=== PATIENT | female | born 1945 | race Caucasian/White ===

== ENCOUNTER 2017-10-13 05:06 | Inpatient (IN) | payer OTHER, MEDICAID ==
--- NOTE | 2017-10-13 05:17 | EDPHY ---
H & P Stated Complaint: Unresponsive - from EMS Time Seen by Provider: 10/13/17 05:12 HPI/ROS: Chief Complaint: Decreased level of responsiveness HPI: 72-year-old woman who is a resident of [facility]. EMS was called this morning because the patient was found with decreased responsiveness in her residence. She has a history of schizophrenia, type 2 diabetes on metformin, chronic kidney disease. Per EMS, staff at [facility] indicated that the patient has been having intermittent GI bleeding for the last 2 days. They also states that her blood sugars been running"high"for the last 2 days. The patient has not been taking her metformin. She was in her normal state of health and mental status yesterday. This morning EMS states that the patient was opening her her eyes and responding to noxious stimuli only. She has not been verbalizing. She was satting in the low 80s on room air. She has a signed [facility] most form indicating that she is full treatment. ROS: 10 point Review of Systems is negative except as noted in the HPI. PMH: Schizophrenia, type 2 diabetes, chronic kidney disease Social History: No smoking, no alcohol, no recreational drug use Family History: non-contributory Physical Exam: Vital signs: Heart rate 118, blood pressure 182/96, respiratory rate is 20, oxygen saturations 94% on 2 L, temperature 37.5 Gen: Somnolent, opens eyes to voice, nonverbal HEENT: Nose: no rhinorrhea Eyes: PERRLA, EOMI Mouth: Dry mucosa Neck: Supple, no JVD Chest: nontender, bilateral diminished lung sounds Heart: S1, S2 normal, no murmur Abd: Soft, non-tender, no guarding Back: no CVA tenderness, no midline tenderness Ext: no edema, non-tender Skin: no rash Neuro: CN II-XII intact, Sensation grossly intact, Strength 5/5 in bilateral upper and lower extremities - Personal History Current Tetanus/Diphtheria Vaccine: Unsure Current Tetanus Diphtheria and Acellular Pertussis (TDAP): Unsure - Medical/Surgical History Hx Asthma: No Hx Chronic Respiratory Disease: No Hx Diabetes: No Hx Cardiac Disease: No Hx Renal Disease: No Hx Cirrhosis: No Hx Alcoholism: No Hx HIV/AIDS: No Hx Splenectomy or Spleen Trauma: No Other PMH: According to alf records: Hernia, diabetes type II, edema, paranoid personality disorder, paraniod schizophrenia, HTN, GERD, - Social History Smoking Status: Unknown if ever smoked Constitutional: Initial Vital Signs Temperature (C) 37.5 C 10/13/17 05:09 Heart Rate 118 H 10/13/17 05:09 Respiratory Rate 20 10/13/17 05:09 Blood Pressure 182/96 H 10/13/17 05:09 O2 Sat (%) 94 10/13/17 05:09 O2 Delivery Mode Nasal Cannula O2 (L/minute) 4 Allergies/Adverse Reactions: No Known Allergies Allergy (Verified 02/15/15 08:30) Home Medications: Medication Instructions Recorded Aspirin EC [Aspirin EC 81 mg (*)] 81 mg PO DAILY 02/15/15 Bisacodyl [Dulcolax] 10 mg RC DAILY PRN 02/15/15 Calcium Carb W/Vit D [Calcium Carb 500 mg PO TIDMEAL 02/15/15 W/Vit D 500/200 (*)] Divalproex [Depakote Sprinkle 125 125 mg PO DAILY 02/15/15 MG (*)] Divalproex [Depakote Sprinkle 125 250 mg PO HS 02/15/15 MG (*)] Furosemide [Lasix 20 MG (*)] 20 mg PO DAILY 02/15/15 Labetalol HCl [Trandate 200 mg (*)] 200 mg PO BID 02/15/15 Lactulose [Cephulac 20 gm/30 ml 10 gm PO BID 02/15/15 oral soln (*)] OLANZapine [ZyPREXA 2.5 mg (*)] 10 mg PO BID 02/15/15 Potassium Cl [Klor-Con 20 meq (*)] 20 meq PO BID 02/15/15 Sennosides/Docusate Sodium 2 each PO BID 02/15/15 [Senna-Docusate Sodium Tablet] Trihexyphenidyl HCl 2 mg PO TIDMEAL 02/15/15 [Trihexyphenidyl 2MG (*)] metFORMIN HCL [Glucophage 500 mg 500 mg PO BIDMEAL 02/15/15 (*)] Medical Decision Making - Diagnostics EKG Interpretation: ECG time 6:43 a.m., sinus tachycardia with a rate of 104, left axis deviation. No acute ST or T-wave changes. Imaging Results: CT scan of the head is unchanged compared to [address] Cobb. No acute change. Chest x-ray shows no focal infiltrate per my interpretation. ED Course/Re-evaluation: 72-year-old unresponsive. She meets SIRS criteria. Will check lactate proceed down septic pathway. No obvious source of infection. Lactic acid noted. Fluids ordered. When results the risk of chemistry and imaging studies. Patient's potassium noted on i-STAT. Blood sugar noted. She is acidotic with an anion gap. Likely lactic acid. I do not thinks that she has an infection but I am awaiting chest x-ray results. I think she is in HHNK and is profoundly dehydrated. She will need an insulin drip regarding this. I have given her an insulin bolus because of her potassium. Will place her on an insulin drip as well. Awaiting CT scan results. I have discussed with Dr. Bradley, the hospitalist. She will admit to the ICU for further care. - Data Points Laboratory Results: Laboratory Results 10/13/17 05:20 10/13/17 05:20 10/13/17 10/13/17 10/13/17 05:34 05:22 05:20 WBC RBC Hgb POC Hgb 16.7 gm/dL H gm/dL (12.6-16.3) Hct POC Hct 49 % H % (38-47) MCV MCH MCHC RDW Plt Count MPV Neut % (Auto) Lymph % (Auto) [place] % (Auto) Eos % (Auto) Baso % (Auto) Nucleat RBC Rel Count Absolute Neuts (auto) Absolute Lymphs (auto) Absolute Monos (auto) Absolute Eos (auto) Absolute Basos (auto) Absolute Nucleated RBC Immature Gran % Immature Gran # PT INR APTT VBG Lactic Acid POC Sodium 144 mEq/L mEq/L (135-145) Sodium POC Potassium 6.0 mEq/L H mEq/L (3.3-5.0) Potassium POC Chloride 114 mEq/L H mEq/L (97-110) Chloride Carbon Dioxide Anion Gap POC BUN 60 mg/dL H mg/dL (7-23) BUN Creatinine POC Creatinine 1.5 mg/dL H mg/dL (0.6-1.0) Estimated GFR Glucose POC Glucose 698 mg/dL H* mg/dL (70-100) Calcium Phosphorus 5.5 mg/dL H mg/dL (2.5-4.5) Magnesium 2.5 mg/dL H mg/dL (1.6-2.3) Total Bilirubin 0.5 mg/dL mg/dL (0.1-1.4) Conjugated Bilirubin 0.3 mg/dL mg/dL (0.0-0.5) Unconjugated Bilirubin 0.2 mg/dL mg/dL (0.0-1.1) AST 14 IU/L IU/L (14-46) ALT 32 IU/L IU/L (9-52) Alkaline Phosphatase 127 IU/L H IU/L (38-126) POC Troponin I Total Protein 7.1 g/dL g/dL (6.3-8.2) Albumin 4.7 g/dL g/dL (3.5-5.0) Beta-Hydroxybutyrate Pending Urine Color PALE YELLOW Urine Appearance CLEAR Urine pH 5.0 (5.0-7.5) Ur Specific [place] 1.024 (1.002-1.030) Urine Protein 1+ H (NEGATIVE) Urine Ketones 1+ H (NEGATIVE) Urine Blood NEGATIVE (NEGATIVE) Urine Nitrate NEGATIVE (NEGATIVE) Urine Bilirubin NEGATIVE (NEGATIVE) Urine Urobilinogen NEGATIVE EU EU (0.2-1.0) Ur Leukocyte Esterase NEGATIVE (NEGATIVE) Urine RBC 1-3 /hpf /hpf (0-3) Urine WBC 1-3 /hpf /hpf (0-3) Ur Epithelial Cells TRACE /lpf /lpf (NONE-1+) Urine Mucus TRACE /lpf /lpf (NONE-1+) Urine Glucose 3+ H (NEGATIVE) 10/13/17 10/13/17 10/13/17 05:20 05:20 05:20 WBC RBC Hgb POC Hgb Hct POC Hct MCV MCH MCHC RDW Plt Count MPV Neut % (Auto) Lymph % (Auto) [place] % (Auto) Eos % (Auto) Baso % (Auto) Nucleat RBC Rel Count Absolute Neuts (auto) Absolute Lymphs (auto) Absolute Monos (auto) Absolute Eos (auto) Absolute Basos (auto) Absolute Nucleated RBC Immature Gran % Immature Gran # PT 14.2 SEC SEC (12.0-15.0) INR 1.08 (0.83-1.16) APTT 26.6 SEC SEC (23.0-38.0) VBG Lactic Acid 2.8 mmol/L H mmol/L (0.7-2.1) POC Sodium Sodium POC Potassium Potassium POC Chloride Chloride Carbon Dioxide Anion Gap POC BUN BUN Creatinine POC Creatinine Estimated GFR Glucose POC Glucose Calcium Phosphorus Magnesium Total Bilirubin Conjugated Bilirubin Unconjugated Bilirubin AST ALT Alkaline Phosphatase POC Troponin I 0.01 ng/mL ng/mL (0.00-0.08) Total Protein Albumin Beta-Hydroxybutyrate Urine Color Urine Appearance Urine pH Ur Specific [place] Urine Protein Urine Ketones Urine Blood Urine Nitrate Urine Bilirubin Urine Urobilinogen Ur Leukocyte Esterase Urine RBC Urine WBC Ur Epithelial Cells Urine Mucus Urine Glucose 10/13/17 10/13/17 05:20 05:20 WBC 13.51 10^3/uL H 10^3/uL (3.80-9.50) RBC 5.55 10^6/uL H 10^6/uL (4.18-5.33) Hgb 15.1 g/dL g/dL (12.6-16.3) POC Hgb Hct 48.1 % H % (38.0-47.0) POC Hct MCV 86.7 fL fL (81.5-99.8) MCH 27.2 pg L pg (27.9-34.1) MCHC 31.4 g/dL L g/dL (32.4-36.7) RDW 14.0 % % (11.5-15.2) Plt Count 463 10^3/uL H 10^3/uL (150-400) MPV 10.4 fL fL (8.7-11.7) Neut % (Auto) 85.3 % H % (39.3-74.2) Lymph % (Auto) 11.0 % L % (15.0-45.0) [place] % (Auto) 2.9 % L % (4.5-13.0) Eos % (Auto) 0.0 % L % (0.6-7.6) Baso % (Auto) 0.1 % L % (0.3-1.7) Nucleat RBC Rel Count 0.0 % % (0.0-0.2) Absolute Neuts (auto) 11.52 10^3/uL H 10^3/uL (1.70-6.50) Absolute Lymphs (auto) 1.48 10^3/uL 10^3/uL (1.00-3.00) Absolute Monos (auto) 0.39 10^3/uL 10^3/uL (0.30-0.80) Absolute Eos (auto) 0.00 10^3/uL L 10^3/uL (0.03-0.40) Absolute Basos (auto) 0.02 10^3/uL 10^3/uL (0.02-0.10) Absolute Nucleated RBC 0.00 10^3/uL 10^3/uL (0-0.01) Immature Gran % 0.7 % % (0.0-1.1) Immature Gran # 0.10 10^3/uL 10^3/uL (0.00-0.10) PT INR APTT VBG Lactic Acid POC Sodium Sodium 148 mEq/L H mEq/L (135-145) POC Potassium Potassium 6.4 mEq/L H* mEq/L (3.3-5.0) POC Chloride Chloride 112 mEq/L H mEq/L (97-110) Carbon Dioxide 14 mEq/l L mEq/l (22-31) Anion Gap 22 mEq/L H mEq/L (8-16) POC BUN BUN 60 mg/dL H mg/dL (7-23) Creatinine 1.5 mg/dL H mg/dL (0.6-1.0) POC Creatinine Estimated GFR 34 Glucose 701 mg/dL H* mg/dL (70-100) POC Glucose Calcium 10.5 mg/dL H mg/dL (8.5-10.4) Phosphorus Magnesium Total Bilirubin 0.5 mg/dL mg/dL (0.1-1.4) Conjugated Bilirubin Unconjugated Bilirubin AST ALT Alkaline Phosphatase POC Troponin I Total Protein Albumin Beta-Hydroxybutyrate Urine Color Urine Appearance Urine pH Ur Specific [place] Urine Protein Urine Ketones Urine Blood Urine Nitrate Urine Bilirubin Urine Urobilinogen Ur Leukocyte Esterase Urine RBC Urine WBC Ur Epithelial Cells Urine Mucus Urine Glucose Medications Given: Discontinued Medications Sodium Chloride (Ns) 1,000 mls @ 0 mls/hr IV ONCE ONE PRN Reason: Wide Open Stop: 10/13/17 05:23 Last Admin: 10/13/17 05:23 Dose: 1,000 mls Sodium Chloride (Ns) 1,600 mls @ 0 mls/hr IV EDNOW ONE; Wide Open PRN Reason: Protocol Stop: 10/13/17 05:42 Last Admin: 10/13/17 05:44 Dose: 1,600 mls Point of Care Test Results: Chemistry 10/13/17 10/13/17 05:22 05:20 POC Sodium 144 mEq/L mEq/L (135-145) POC Potassium 6.0 mEq/L H mEq/L (3.3-5.0) POC Chloride 114 mEq/L H mEq/L (97-110) POC BUN 60 mg/dL H mg/dL (7-23) POC Creatinine 1.5 mg/dL H mg/dL (0.6-1.0) POC Glucose 698 mg/dL H* mg/dL (70-100) POC Troponin I 0.01 ng/mL ng/mL (0.00-0.08) ISTAT H&H 10/13/17 05:22 POC Hgb 16.7 gm/dL H gm/dL (12.6-16.3) POC Hct 49 % H % (38-47) Departure - Departure Clinical Impression: Altered mental status, Hyperglycemia, Hyperkalemia Condition: Serious
[2017-10-13] MEDS ORDERED: NS 1,000 ML IV ONE (05:22)
[2017-10-13] MEDS ORDERED: NS 2,600 ML IV ONE ×2 (05:35)
[2017-10-13] MEDS ORDERED: NS 1,600 ML IV ONE (05:41)
[2017-10-13 05:48] LABS: INR 1.08 (0.83-1.16); PROTIME(PATIENT) 14.2 SEC (12.0-15.0)
[2017-10-13] MEDS ORDERED: D50W 25 GM/50 ML SYR IVP PRN ×2 (06:12→15:53)
[2017-10-13] MEDS ORDERED: D10W 1,000 ML IV ONE (06:12)
[2017-10-13] MEDS ORDERED: INSULIN REGULAR HUMAN 100 UNIT, COSIGN. REQUIRED 1 EA in NS 100 ML IV ONE (06:12)
[2017-10-13 06:16] LABS: PLATELET COUNT 463 10^3/uL (150-400)
[2017-10-13] MEDS ORDERED: INSULIN REGULAR HUMAN 100 UNIT/ML UNIT IVP ONE (06:21)
[2017-10-13] MEDS ORDERED: ONDANSETRON 4 MG/2 ML VIAL IVP PRN (06:45)
[2017-10-13] MEDS ORDERED: ACETAMINOPHEN 325 MG TAB PO PRN (06:45)
[2017-10-13] MEDS ORDERED: NS 1,000 ML IV SCH (06:45)
--- NOTE | 2017-10-13 06:47 | CPEKG ---
Heart Rate: 104 RR Interval: 577 P-R Interval: 140 QRSD Interval: 76 QT Interval: 344 QTC Interval: 453 P [place]: 58 QRS [place]: -35 T Wave [place]: 82 EKG Severity - OTHERWISE NORMAL ECG - EKG Impression: SINUS TACHYCARDIA EKG Impression: LEFT AXIS DEVIATION Electronically Signed By: Denton Case 13-Oct-2017 06:51:22
--- NOTE | 2017-10-13 07:29 | PDGENHP ---
History and Physical - Chief Complaint Altered mental status - History of Present Illness Source-patient with a history of paranoid schizophrenia, dm 2, HTN, PVD, CKD baseline unknown, GERD who presents emergency department from [facility] with notations of altered mental status from her baseline. It is unclear what what patient's baseline is however she was minimally verbal and responsive. Per available records for review in 2014 when patient was admitted she was oriented x3. At time of my interview patient with limited response had to some yes no questions. She is denying any pain. Denies any fever. Apparently there was a report that patient was being monitored for concerns of a GI bleed. Additionally it was mentioned that patient had not had her metformin in a few days however per her facility med rec she has been receiving her metformin appropriately. With the last dose received yesterday morning. Patient's blood sugar was noted to be significantly elevated. She was tachycardic but afebrile. In the ED patient was noted to be tachycardic to the 1 100s. Her blood sugar was greater than 700. Patient was given IV fluids and insulin. Her potassium was also noted to be elevated 6.4. Patient with a history of CKD stage is unclear. Creatinine was also noted to be elevated as well as her sodium. History Information - Allergies/Home Medication List Allergies/Adverse Reactions: No Known Allergies Allergy (Verified 02/15/15 08:30) Home Medications: Aspirin EC [Aspirin EC 81 mg (*)] 81 mg PO DAILY 02/15/15 [Last Taken 02/14/15] Bisacodyl [Dulcolax] 10 mg RC DAILY PRN 02/15/15 [Last Taken Unknown] Calcium Carb W/Vit D [Calcium Carb W/Vit D 500/200 (*)] 500 mg PO TIDMEAL [Last Taken 02/14/15] Divalproex [Depakote Sprinkle 125 MG (*)] 125 mg PO DAILY 02/15/15 [Last Taken 02/14/15] Divalproex [Depakote Sprinkle 125 MG (*)] 250 mg PO HS 02/15/15 [Last Taken 12/20] Furosemide [Lasix 20 MG (*)] 20 mg PO DAILY 02/15/15 [Last Taken 02/14/15] Labetalol HCl [Trandate 200 mg (*)] 200 mg PO BID 02/15/15 [Last Taken 02/14/15 1830] Lactulose [Cephulac 20 gm/30 ml oral soln (*)] 10 gm PO BID 02/15/15 [Last Taken 02/14/15] OLANZapine [ZyPREXA 2.5 mg (*)] 10 mg PO BID 02/15/15 [Last Taken 02/14/15 18:30 ] Potassium Cl [Klor-Con 20 meq (*)] 20 meq PO BID 02/15/15 [Last Taken 02/14/15 18:30] Sennosides/Docusate Sodium [Senna-Docusate Sodium Tablet] 2 each PO BID [Last Taken 02/14/15 18:30] Trihexyphenidyl HCl [Trihexyphenidyl 2MG (*)] 2 mg PO TIDMEAL 02/15/15 [Last Taken 02/14/15 18:30] metFORMIN HCL [Glucophage 500 mg (*)] 500 mg PO BIDMEAL 02/15/15 [Last Taken 12/20 18:00] I have personally reviewed and updated: family history, medical history, social history, surgical history - Past Medical History Additional medical history: Paranoid schizophrenia, diabetes type 2 on metformin , GERD, HTN, CKD stage unknown, history of admission for pneumonia and hypoxia 2014, hernia, vitamin-D deficiency, PVD bilateral lower extremities, osteoarthritis, skin disorder right wrist and left alexander. - Surgical History Additional surgical history: Unable to obtain due to patient's encephalopathy. - Family History Additional family history: Unable to obtain secondary to patient's encephalopathy. - Social History Smoking Status: Unknown if ever smoked Alcohol Use: None Drug Use: None Additional social history: Patient resides at [facility]. Her son is primary contact and her sister is secondary. Cor status per accompanying most form is full. Review of Systems Review of Systems: Unable to obtain full review of systems secondary to patient's limited verbal responses. She denies any chest pain . She denies any fevers. Physical Exam Physical Exam: Selected Entries 10/13/17 05:09 Blood Pressure Automatic Method Heart Rate 118 H Respiratory 20 Rate O2 Sat (%) 94 Temperature (C) 37.5 C Blood Pressure 182/96 H Mean Arterial 124 H Pressure (MAP) O2 (L/minute) 4 O2 Delivery Nasal Cannula Mode Temperature Oral Source Temp Pulse Resp BP Pulse Ox 37.5 C 111 H 18 157/77 H 96 10/13/17 05:09 10/13/17 07:13 10/13/17 07:13 10/13/17 07:13 10/13/17 07:13 O2 (L/minute) 2 Constitutional: no apparent distress, chronically ill appearing, other (Patient slightly flushed. Obese adult female is sitting up on the gurney. She appears fatigued but awake. She is minimally verbally responsive but she does follow various staff with her eyes in the room.) Eyes: PERRL, anicteric sclera, EOMI (Limited assessment secondary to patient's ability to follow instructions but voluntary gaze appears to be intact.), No scleral injection Ears, Nose, Mouth, Throat: poor dentition, dry mucous membranes Cardiovascular: no murmur, rub, or gallop, pulses symmetric bilaterally ( Slightly decreased), tachycardia (Regular rhythm), No edema Peripheral Pulses: 1+: dorsalis-pedis (R), dorsalis-pedis (L) Respiratory: no respiratory distress, bronchial breath sounds (Anterior lung ruiz slightly coarse.), No reduced air movement, No expiratory wheeze, No respiratory distress (No increased work of breathing.) Gastrointestinal: normoactive bowel sounds, soft, non-tender abdomen, no palpable masses, other (Obese abdomen), No distension Genitourinary: no bladder tenderness, No young in urethra Skin: warm, normal color (Patient slightly flushed), other (Cutaneous form on the right wrist, left anterior alexander with some chronic skin changes.) Musculoskeletal: other (Limited assessment due to patient's ability to follow instructions and RNs currently trying to place IV) Neurologic: sensation intact bilaterally, other (Patient oriented to place. Limited verbal responses at this time regarding location and time. Limited neurologic assessment but no facial drooping grossly nonfocal.) Psychiatric: encephalopathic (Patient minimally verbal), flat affect Lab Data & Imaging Review 10/13/17 05:20 10/13/17 05:20 WBC 13.51 10^3/uL (3.80-9.50) H 10/13/17 05:20 RBC 5.55 10^6/uL (4.18-5.33) H 10/13/17 05:20 Hgb 15.1 g/dL (12.6-16.3) 10/13/17 05:20 POC Hgb 16.7 gm/dL (12.6-16.3) H 10/13/17 05:22 Hct 48.1 % (38.0-47.0) H 10/13/17 05:20 POC Hct 49 % (38-47) H 10/13/17 05:22 MCV 86.7 fL (81.5-99.8) 10/13/17 05:20 MCH 27.2 pg (27.9-34.1) L 10/13/17 05:20 MCHC 31.4 g/dL (32.4-36.7) L 10/13/17 05:20 RDW 14.0 % (11.5-15.2) 10/13/17 05:20 Plt Count 463 10^3/uL (150-400) H 10/13/17 05:20 MPV 10.4 fL (8.7-11.7) 10/13/17 05:20 Neut % (Auto) 85.3 % (39.3-74.2) H 10/13/17 05:20 Lymph % (Auto) 11.0 % (15.0-45.0) L 10/13/17 05:20 Hanson % (Auto) 2.9 % (4.5-13.0) L 10/13/17 05:20 Eos % (Auto) 0.0 % (0.6-7.6) L 10/13/17 05:20 Baso % (Auto) 0.1 % (0.3-1.7) L 10/13/17 05:20 Nucleat RBC Rel Count 0.0 % (0.0-0.2) 10/13/17 05:20 Absolute Neuts (auto) 11.52 10^3/uL (1.70-6.50) H 10/13/17 05:20 Absolute Lymphs (auto) 1.48 10^3/uL (1.00-3.00) 10/13/17 05:20 Absolute Monos (auto) 0.39 10^3/uL (0.30-0.80) 10/13/17 05:20 Absolute Eos (auto) 0.00 10^3/uL (0.03-0.40) L 10/13/17 05:20 Absolute Basos (auto) 0.02 10^3/uL (0.02-0.10) 10/13/17 05:20 Absolute Nucleated RBC 0.00 10^3/uL (0-0.01) 10/13/17 05:20 Immature Gran % 0.7 % (0.0-1.1) 10/13/17 05:20 Immature Gran # 0.10 10^3/uL (0.00-0.10) 10/13/17 05:20 PT 14.2 SEC (12.0-15.0) 10/13/17 05:20 INR 1.08 (0.83-1.16) 10/13/17 05:20 APTT 26.6 SEC (23.0-38.0) 10/13/17 05:20 VBG Lactic Acid 2.8 mmol/L (0.7-2.1) H 10/13/17 05:20 POC Sodium 144 mEq/L (135-145) 10/13/17 05:22 Sodium 148 mEq/L (135-145) H 10/13/17 05:20 POC Potassium 6.0 mEq/L (3.3-5.0) H 10/13/17 05:22 Potassium 6.4 mEq/L (3.3-5.0) H* 10/13/17 05:20 POC Chloride 114 mEq/L (97-110) H 10/13/17 05:22 Chloride 112 mEq/L (97-110) H 10/13/17 05:20 Carbon Dioxide 14 mEq/l (22-31) L 10/13/17 05:20 Anion Gap 22 mEq/L (8-16) H 10/13/17 05:20 POC BUN 60 mg/dL (7-23) H 10/13/17 05:22 BUN 60 mg/dL (7-23) H 10/13/17 05:20 Creatinine 1.5 mg/dL (0.6-1.0) H 10/13/17 05:20 POC Creatinine 1.5 mg/dL (0.6-1.0) H 10/13/17 05:22 Estimated GFR 34 10/13/17 05:20 Glucose 701 mg/dL (70-100) H* 10/13/17 05:20 POC Glucose 698 mg/dL (70-100) H* 10/13/17 05:22 Calcium 10.5 mg/dL (8.5-10.4) H 10/13/17 05:20 Phosphorus 5.5 mg/dL (2.5-4.5) H 10/13/17 05:20 Magnesium 2.5 mg/dL (1.6-2.3) H 10/13/17 05:20 Total Bilirubin 0.5 mg/dL (0.1-1.4) 10/13/17 05:20 Conjugated Bilirubin 0.3 mg/dL (0.0-0.5) 10/13/17 05:20 Unconjugated Bilirubin 0.2 mg/dL (0.0-1.1) 10/13/17 05:20 AST 14 IU/L (14-46) 10/13/17 05:20 ALT 32 IU/L (9-52) 10/13/17 05:20 Alkaline Phosphatase 127 IU/L (38-126) H 10/13/17 05:20 POC Troponin I 0.01 ng/mL (0.00-0.08) 10/13/17 05:20 Total Protein 7.1 g/dL (6.3-8.2) 10/13/17 05:20 Albumin 4.7 g/dL (3.5-5.0) 10/13/17 05:20 Beta-Hydroxybutyrate 4.82 mmol/L (0.02-0.27) H 10/13/17 05:20 Urine Color PALE YELLOW 10/13/17 05:34 Urine Appearance CLEAR 10/13/17 05:34 Urine pH 5.0 (5.0-7.5) 10/13/17 05:34 Ur Specific [place] 1.024 (1.002-1.030) 10/13/17 05:34 Urine Protein 1+ (NEGATIVE) H 10/13/17 05:34 Urine Ketones 1+ (NEGATIVE) H 10/13/17 05:34 Urine Blood NEGATIVE (NEGATIVE) 10/13/17 05:34 Urine Nitrate NEGATIVE (NEGATIVE) 10/13/17 05:34 Urine Bilirubin NEGATIVE (NEGATIVE) 10/13/17 05:34 Urine Urobilinogen NEGATIVE EU (0.2-1.0) 10/13/17 05:34 Ur Leukocyte Esterase NEGATIVE (NEGATIVE) 10/13/17 05:34 Urine RBC 1-3 /hpf (0-3) 10/13/17 05:34 Urine WBC 1-3 /hpf (0-3) 10/13/17 05:34 Ur Epithelial Cells TRACE /lpf (NONE-1+) 10/13/17 05:34 Urine Mucus TRACE /lpf (NONE-1+) 10/13/17 05:34 Urine Glucose 3+ (NEGATIVE) H 10/13/17 05:34 Imaging Review: Unenhanced CT Scan of the Head Clinical History: 72-year-old female presenting to the ED with an altered mental status and blood glucose level of 700 mg per deciliter, suspected to have hyperosmolar hyperglycemic nonketotic syndrome. Rule out acute intracranial abnormality. Technique: Standard unenhanced axial CT images were acquired from the skull base to the skull vertex and reformatted at 5.00 and 1.50 mm increments and reviewed in bone, brain, and subdural windows. Parasagittal and paracoronal reconstructed images are reviewed on the workstation. DFOV: 25 cm. Dose reduction protocol is used. Comparison Study: Unenhanced CT scan of the head dated February 15, 2015. Findings: Again noted is ventriculomegaly equivocally disproportionate to cortical sulcal widening although unchanged. Previously a comment had been made regarding the possibility of not excluding communicating hydrocephalus (NPH). Features have not changed, however. There is also rather extensive confluent periventricular deep white matter diminished attenuation, consistent with chronic microvascular ischemic gliosis (findings had been previously noted to potentially be related to prior oncologic chemotherapy or radiation therapy), and these features have also not changed. There is no midline shift or other evidence of mass effect. There is no acute or subacute abnormal intraaxial or extraaxial blood collection. Brain stem and cerebellum are normal. The orbits , paranasal sinuses, mastoids, craniocervical junction, sella turcica, and pineal gland are unremarkable. There is atherosclerotic calcification of the cavernous carotid arteries. There is no evidence of a skull fracture or lytic or blastic lesion. Impression: Advanced senescent features, with no acute intracranial abnormality or substantial change from February 15, 2015. Preliminary results were conveyed to Dr. Abiel Case at 6:40 a.m. on October 13, 2017. If there is further clinical concern regarding the patient's symptoms, MR imaging could be considered, if otherwise not contraindicated. POS99 EMERGENCY ON-CALL Dictated By: Denton Cobb MD Chest X-Ray results: no infiltrate, other (Mildly enlarged cardiac silhouette. On mild pulmonary vascular congestion. No acute infiltrates appreciated on my initial review. Final report is still pending.) Visualized and Interpreted imaging results: Yes EKG additional interpertation: Sinus tachycardia. Left axis deviation. No acute ST changes. QTC 453. Assessment & Plan Assessment: 72-year-old female with history of paranoid schizophrenia, diabetes type 2, HTN , CKD, GERD, PVD presents from her assisted living facility with acute altered mental status #DKA - patient's blood sugars will over 700. However she does also have elevated serum ketones. He is quite dehydrated and on will continue to receive aggressive IV fluid hydration. She has been started on the DKA protocol with a 10 units IV bolus of insulin in the emergency department. Continue with serial laboratory studies and continuous cardiac monitoring. #Acute metabolic encephalopathy - secondary to DKA, dehydration and likely also component of her schizophrenia. #Hyperkalemia - patient is on potassium replacement at home in addition to her Lasix and in setting of acute kidney injury should respond appropriately to IV fluid hydration and insulin. Patient's EKG each G does not show any peaked T- waves so will hold off on calcium replacement Kayexalate and await her q.1 hour BMP to see if her potassium has down trended. #Hypernatremia corrected for glucose of 700 - continue with IV fluid hydration. Corrected patient's sodium is 158-162. This is likely due to hypovolemia in setting of DKA and acute dehydration. Serial BMPs as per DKA protocol. #Lactic acidosis - likely related to patient's metformin use in addition to severe dehydration. Continue with serial lactates. No evidence of infectious process at this time. #Hyperchloremia - elevated in setting of hypernatremia dehydration. IV fluid hydration monitoring BMPs. #Leukocytosis - patient without any evidence of acute infectious process blood cultures have been obtained however. Will not initiate any antibiotic therapy at this time. Patient denies any recent illnesses but has limited reliability as she is minimally verbal.. #Thrombocytosis - likely reactive in setting of dehydration and DKA. #Sirs - tachycardia and leukocytosis. Patient is without any fever. Lactate is also elevated but lightly due to metabolic derangement in use of metformin. No evidence of infectious process on preliminary assessment. Hold off on antibiotics. Continue with DKA protocol and IV fluid hydration. #Acute on chronic kidney disease stage unknown - pre renal in nature due to severe dehydration. #Reported GI bleeding - patient without any evidence of active bleeding at this time are H&H is elevated due to dehydration. Will monitor closely. Chronic medical problem #Paranoid schizophrenia - patient's QTC home is currently acceptable when it is safe to advance her diet plan to resume her Zyprexa, trihexyphenidyl #Diabetes type 2 [id number] - patient issued on DKA protocol as noted above. Will likely require discharge with insulin regiment after she is stabilized. #HTN - patient initial blood pressures were elevated they have since come down at this time. Does not require any further intervention for now. She does normally take labetalol and Lasix at home. #GERD - continue PPI per formulary when med rec available #Vitamin-D deficiency - continue replacement when patient is stabilized and diet advanced. #PVD bilateral lower extremity - patient is not on any aspirin or antiplatelet products. She will be placed on prophylactic heparin FEN - continue with IV fluid hydration. Monitor electrolytes and sodium per protocol. Patient will be made NPO until her mentation improves. Per her medical records for him [facility] patient's diet is no salt added ground meat texture thin consistency PPX-SCDs. Heparin in setting of AK I on CKD Cor status-full per most form Disposition-patient admitted inpatient status to the ICU for close neurologic and metabolic monitoring. Patient is acutely ill and requires ICU level care at this time. Anticipate greater than 2 midnight stay.
--- NOTE | 2017-10-13 10:36 | HOSPPROG ---
Hospitalist Progress Note Assessment/Plan: Spoke to RN at [place]: sugars be running 400s. h/o GIB and had coffee- ground emesis. Normally interactive and would know her name/place #DKA: A1c 13; under-medicated with metformin 250mg. Insulin gtt, transition to Lantus, SSI once eating. Change IVFs to D%W 1/2NS with hypernatremia #Metabolic anion gap acidosis: closed with fluids, insulin #Hyperkalemia: resolved with IVFs #BRIAN: dehydration #Schizophrenia: resume psych meds once mental status clears #DM: undertreated with Metformin 250mg daily #Leukocytosis: dehydrated. UA, CXR negative #Acute encephalopathy: DKA, CXR/UA negative #Reported hematemesis: IV PPI, serial H/H, FOBT. Hemodynamically stable Critical care time spent 30 min (11:30-1200) bedside, reviewing labs, d/w staff at [facility] Objective: Vital Signs Temp Pulse Resp BP Pulse Ox 36.8 C 100 20 141/64 H 97 10/13/17 08:10 10/13/17 10:00 10/13/17 10:00 10/13/17 10:00 10/13/17 10:00 Laboratory Results 10/13/17 09:10 10/12/17 10/13/17 10/14/17 05:59 05:59 05:59 Output Total 1150 Balance -1150 PT 14.2 SEC (12.0-15.0) 10/13/17 05:20 INR 1.08 (0.83-1.16) 10/13/17 05:20 - Physical Exam Ears, Nose, Mouth, Throat: poor dentition, dry mucous membranes Cardiovascular: regular rate and rhythym Respiratory: no respiratory distress Gastrointestinal: normoactive bowel sounds, soft, non-tender abdomen Genitourinary: no bladder fullness, No young in urethra Skin: other (flaking skin left alexander with surrounding crusting, no cellulitic. ) Musculoskeletal: other (mild erythema underlying BL breast) Neurologic: CN II-XII Intact, other (answers some questions) Psychiatric: encephalopathic ICD10 Worksheet Patient Problems: Problems Problem Status Onset Altered mental state Acute Hyperglycemia Acute Hyperkalemia Acute Acute encephalopathy Acute Acute hypoxemic respiratory failure Acute Pneumonia Acute Sepsis Acute
[2017-10-13] MEDS: PANTOPRAZOLE SODIUM 40 MG VIAL IVP SCH ×2 (11:19→20:40)
[2017-10-13] MEDS ORDERED: PROTOCOL POTASSIUM 1 DOSE MISC PRN (12:01)
[2017-10-13] MEDS ORDERED: POTASSIUM Cl (KCl) 10 MEQ/100 ML BAG IV ONE (12:03)
[2017-10-13] MEDS: POTASSIUM Cl (KCl) 100 ML IV SCH ×5 (12:15→23:55)
[2017-10-13] MEDS: HEPARIN 5,000 UNIT/0.5 ML INJ SC SCH ×2 (15:00→20:40)
[2017-10-13] MEDS ORDERED: D5W 1,000 ML IV SCH (16:00)
[2017-10-13] MEDS ORDERED: INSULIN GLARGINE 100 UNITS/ML UNIT SC SCH (16:00)
[2017-10-13] MEDS ORDERED: INSULIN REGULAR HUMAN 100 UNIT in NS 100 ML IV SCH (16:00)
--- NOTE | 2017-10-13 17:25 | PDMN ---
Medical Necessity Medical necessity: Pt meets IP criteria per MD; est los >2 mn for eval/tx of DKA w/blood sugars >700, dehydration, encephalopathy, electrolyte abnormalities , SIRS, acute on chronic kidney disease & GI bleed; admit to ICU for close monitoring/further workup, aggressive IVFS (rate 150 mls/hr) & DKA protocol; hx schizophrenia, diabetes, PVD; per H&P & order 10/13/17
[2017-10-13] MEDS: D5W 1/2 NS 1,000 ML IV SCH ×2 (17:36→23:57)
[2017-10-13] MEDS ORDERED: INSULIN GLARGINE 100 UNITS/ML UNIT SC ONE (17:45)
[2017-10-13] MEDS: INSULIN LISPRO 100 UNIT/ML SC SCH (18:13)
[2017-10-13] MEDS: TRIHEXYPHENIDYL HCL 2 MG TAB PO SCH (18:15)
[2017-10-13] MEDS ORDERED: OLANZapine 2.5 MG TAB PO SCH (21:00)
[2017-10-14] MEDS: HEPARIN 5,000 UNIT/0.5 ML INJ SC SCH ×4 (05:50→20:32)
[2017-10-14] MEDS: INSULIN LISPRO 100 UNIT/ML SC SCH ×3 (08:00→18:11)
[2017-10-14] MEDS: TRIHEXYPHENIDYL HCL 2 MG TAB PO SCH ×2 (08:00→20:32)
[2017-10-14] MEDS: PANTOPRAZOLE SODIUM 40 MG VIAL IVP SCH (08:02)
[2017-10-14] MEDS: D5W 1/2 NS 1,000 ML IV SCH (08:28)
--- NOTE | 2017-10-14 09:31 | ASMTCASEMG ---
Living Arrangements What is your living Answers: With Other (Not Family) arrangement? Who do you live with? Type Of Residence What kind of residence do Answers: [facility] Facility you live in? Type of Residence Facility Name Notes: [facility] Discharge Plan Comments Coordination Status Comments Notes: Patient is a 72yo single female with a hx of paranoid schizophrenia, diabetes type 2, HTN, CKD, GERD, and PVD who presents with acute altered mental status. Patient was admitted for pneumonia, hypoxic respiratory failure, sepsis, hyperglycemia, and hyperkalemia. PT has been ordered. Patient will most likely return to [facility] at d/c. CM will follow. Date Signed: 10/14/2017 09:30 AM Electronically Signed By:Ruby Almonte LCSW
--- NOTE | 2017-10-14 15:03 | HOSPPROG ---
Hospitalist Progress Note Assessment/Plan: 72 yo F w dm here w dka vs [facility]ON[facility] #DKA: A1c 13; under-medicated with metformin 250mg. increase lantus to 30 dc metformin #Metabolic anion gap acidosis: closed with fluids, insulin resolved #Hyperkalemia: resolved with IVFs #BRIAN: dehydration #Schizophrenia: resume psych meds once mental status clears #DM: undertreated with Metformin 250mg daily #Leukocytosis: dehydrated. UA, CXR negative #Acute encephalopathy: DKA, CXR/UA negative #Reported hematemesis: IV PPI, serial H/H, FOBT. Hemodynamically stable to floor # Subjective: blood sugars in 300's. case d/w dr singh Objective: Vital Signs Temp Pulse Resp BP Pulse Ox 36.2 C 88 20 121/60 H 96 10/14/17 11:59 10/14/17 14:00 10/14/17 14:00 10/14/17 14:00 10/14/17 14:00 Laboratory Results 10/14/17 05:55 10/14/17 05:55 10/13/17 10/14/17 10/15/17 05:59 05:59 05:59 Intake Total 6088 Output Total 2285 Balance 3803 PT 14.2 SEC (12.0-15.0) 10/13/17 05:20 INR 1.08 (0.83-1.16) 10/13/17 05:20 - Physical Exam Constitutional: no apparent distress, appears nourished Eyes: PERRL, anicteric sclera Ears, Nose, Mouth, Throat: moist mucous membranes, hearing normal Cardiovascular: regular rate and rhythym, no murmur, rub, or gallop Respiratory: no respiratory distress, no rales or rhonchi Gastrointestinal: normoactive bowel sounds, soft, non-tender abdomen Genitourinary: no bladder fullness, No young in urethra Skin: warm, normal color Musculoskeletal: full muscle strength, no muscle tenderness Neurologic: AAOx3 ICD10 Worksheet Patient Problems: Problems Problem Status Onset Altered mental state Acute Hyperglycemia Acute Hyperkalemia Acute Acute encephalopathy Acute Acute hypoxemic respiratory failure Acute Pneumonia Acute Sepsis Acute
[2017-10-14] MEDS: PANTOPRAZOLE SODIUM 40 MG TAB PO SCH ×2 (18:11→20:32)
[2017-10-14] MEDS ORDERED: OLANZapine 2.5 MG TAB PO SCH (19:15)
[2017-10-14] MEDS: LACTULOSE 20 GM/30 ML UDCUP PO SCH (20:33)
[2017-10-14] MEDS: LABETALOL HCL 200 MG TAB PO SCH (20:59)
[2017-10-14] MEDS ORDERED: INSULIN GLARGINE 100 UNITS/ML UNIT SC SCH (21:00)
[2017-10-15] MEDS: HEPARIN 5,000 UNIT/0.5 ML INJ SC SCH ×2 (05:30→15:06)
[2017-10-15] MEDS: LACTULOSE 20 GM/30 ML UDCUP PO SCH (08:24)
[2017-10-15] MEDS: PANTOPRAZOLE SODIUM 40 MG TAB PO SCH ×2 (08:26→09:00)
[2017-10-15] MEDS: TRIHEXYPHENIDYL HCL 2 MG TAB PO SCH (08:26)
[2017-10-15] MEDS ORDERED: POLYETHYLENE GLYCOL 3350 17 GM PKT PO SCH (09:00)
[2017-10-15] MEDS: INSULIN LISPRO 100 UNIT/ML SC SCH (09:15)
[2017-10-15 11:04] VITALS: BP 139/67
--- NOTE | 2017-10-15 11:38 | HOSPPROG ---
Hospitalist Progress Note Assessment/Plan: 72 yo F w dm here w dka vs [facility] #DKA: A1c 13; under-medicated with metformin 250mg. increase lantus to 30 dc metformin will dc on lantus alone #Metabolic anion gap acidosis: closed with fluids, insulin resolved #Hyperkalemia: resolved with IVFs #BRIAN: dehydration #Schizophrenia: resume psych meds once mental status clears #DM: undertreated with Metformin 250mg daily #Leukocytosis: dehydrated. UA, CXR negative #Acute encephalopathy: DKA, CXR/UA negative #Reported hematemesis: IV PPI, serial H/H, FOBT. Hemodynamically stable dc today > 30 minutes on dc # Subjective: blod sugars well controlled on lantus Objective: Vital Signs Temp Pulse Resp BP Pulse Ox 36.5 C 68 12 139/67 H 95 10/15/17 11:02 10/15/17 11:02 10/15/17 11:02 10/15/17 11:02 10/15/17 11:02 Laboratory Results 10/14/17 05:55 10/14/17 05:55 10/14/17 10/15/17 10/16/17 05:59 05:59 05:59 Intake Total 6088 1130 Output Total 2285 1600 Balance 3803 -470 PT 14.2 SEC (12.0-15.0) 10/13/17 05:20 INR 1.08 (0.83-1.16) 10/13/17 05:20 - Physical Exam Constitutional: no apparent distress, appears nourished Eyes: PERRL, anicteric sclera Ears, Nose, Mouth, Throat: moist mucous membranes, hearing normal Cardiovascular: regular rate and rhythym, no murmur, rub, or gallop Respiratory: no respiratory distress, no rales or rhonchi Gastrointestinal: normoactive bowel sounds, soft, non-tender abdomen Genitourinary: no bladder fullness, young in urethra Skin: warm, normal color Musculoskeletal: full muscle strength ICD10 Worksheet Patient Problems: Problems Problem Status Onset Altered mental state Acute Hyperglycemia Acute Hyperkalemia Acute Acute encephalopathy Acute Acute hypoxemic respiratory failure Acute Pneumonia Acute Sepsis Acute
--- NOTE | 2017-10-15 11:41 | PDIAF ---
- Diagnosis Diagnosis: hyerpglycemia, uncontrolled diabetes Code Status: Full Code - Medication Management Discharge Medications: Medications to Continue on Transfer Calcium Carb W/Vit D [Calcium Carb W/Vit D 500/200 (*)] 500 mg PO TID 02/15/15 [ Last Taken 10/12/17 21:00] Furosemide [Lasix 20 MG (*)] 20 mg PO DAILY 02/15/15 [Last Taken 10/12/17] Labetalol HCl [Trandate 200 mg (*)] 200 mg PO BID 02/15/15 [Last Taken 10/12/17 21:00] Lactulose [Cephulac 20 gm/30 ml oral soln (*)] 10 gm PO BID 02/15/15 [Last Taken 10/12/17 21:00] OLANZapine [ZyPREXA 2.5 mg (*)] 17.5 mg PO HS 02/15/15 [Last Taken 10/12/17] Potassium Cl [Klor-Con 20 meq (*)] 20 meq PO BID 02/15/15 [Last Taken 10/12/17 21:00] Sennosides/Docusate Sodium [Senna-Docusate Sodium Tablet] 2 each PO BID [Last Taken 10/12/17 21:00] Acetaminophen [Tylenol 325mg (*)] 650 mg PO DAILY@11 10/13/17 [Last Taken ] Ergocalciferol [Vitamin D2 (*)] 50,000 unit PO Q30D 10/13/17 [Last Taken ] Mag Hydrox/Aluminum Hyd/Simeth [Antacid Suspension] 20 ml PO Q8HRS PRN 10/13/17 [Last Taken Unknown] Magnesium Hydroxide [Milk of Magnesia] 30 ml PO Q2D 10/13/17 [Last Taken ] Omeprazole 40 mg PO BIDMEAL 10/13/17 [Last Taken 10/12/17 18:00] Ondansetron HCl [Zofran] 4 mg PO Q6HRS PRN 10/13/17 [Last Taken Unknown] Polyethylene Glycol 3350 [Miralax 17 gm (*)] 1 each PO DAILY 10/13/17 [Last Taken 10/12/17] Trihexyphenidyl HCl [Trihexyphenidyl 2MG (*)] 1 mg PO BIDMEAL 10/13/17 [Last Taken 10/12/17 18:00] guaiFENesin [Cough Syrup] 10 ml PO Q4HRS PRN 10/13/17 [Last Taken Unknown] Insulin Glargine [Lantus Syringe] 30 units SC HS unit 10/15/17 [Last Taken Unknown] Discharge Medications: Refer to the Discharge Home Medication list for PRN reason. - Orders Services needed: Registered Nurse, Certified Food Court Team Member, Physical Therapy, Occupational Therapy - Follow Up Care Current Providers and Referrals: MALDONADO LIEBERMAN [Primary Care Provider] - As per Instructions
--- NOTE | 2017-10-15 11:49 | ASMTLACE ---
LACE Length of stay for Answers: 2 days current admission Acuity / Level of Answers: Yes Care: Did the patient have an inpatient admission? Comorbidities - select Answers: Diabetes (uncontrolled or all that apply controlled) Other Notes: CKD; HTN # of Emergency department Answers: 1-2 visits in the last 6 months Social determinants Answers: Mental health diagnosis (anxiety, depression, pers onality disorders, etc.) Score: 11 Date Signed: 10/15/2017 11:48 AM Electronically Signed By:Shanna Rod RN
[2017-10-15] MEDS: LABETALOL HCL 200 MG TAB PO SCH (11:52)
--- NOTE | 2017-10-15 12:06 | GDS ---
[f rep st] DISCHARGE SUMMARY DISCHARGE DIAGNOSES: 1. Uncontrolled diabetes. 2. Hyperglycemia with decompensated diabetic state, hyperglycemic hyperosmolar nonketotic coma versu s diabetic ketoacidosis. 3. Anemia. 4. Schizophrenia. Please see admission history and physical by Dr. Elena Bradley. The patient presented with markedly e levated blood sugars in the 700s, with depressed mental status. She was placed on an insulin drip wi th closure of the anion gap. Her admission serum bicarb was low at 14. Her pH was 7.2, making that more consistent with HONK than DKA. The patient was given insulin drip, anion gap closed, started on Lantus insulin, initially at 25, inc reased to 30. She was hyperkalemic; that improved. She was hypernatremic; that improved. Ultimatel y, she had a hemoglobin A1c of 14.8, consistent with uncontrolled diabetes. Given the overall trajec tory of her care, the patient was placed on Lantus 30 daily with morning blood sugars in the 100s, wh ich would be a vast improvement over her current level of care. Should increased control be desired, it would be reasonable to start a mealtime short-acting insulin, such as lispro. /[id number]/MODL
--- NOTE | 2017-10-15 12:39 | ASMTDCNOTE ---
Case Management Discharge Discharge Order Complete? Answers: Yes Patient to Obtain Answers: Other Notes: [facility] Medications Transportation Arranged Answers: [facility] will Pick (Date 10/15/2017 02:00 PM & Time) Case Management Transport Answers: Yes Form Complete Faxed Final Orders Answers: Yes Agency/Facility Transfer Answers: Yes Report Printed & Faxed to Receiving Agency Family Notified Answers: Yes Discharge Comments Notes: Spoke w/, pt able to return to where pt lives. [facility] at notified, RN to call report. Date Signed: 10/15/2017 12:38 PM Electronically Signed By:Shanna Rod RN
[2017-10-15] MEDS ORDERED: OLANZapine 10 MG TAB PO SCH (16:00)
[2017-10-15] MEDS ORDERED: OLANZapine 5 MG TAB PO SCH (16:00)
[2017-10-16] MEDS ORDERED: MAGNESIUM HYDROXIDE 30 ML UDCUP PO SCH (09:00)
--- NOTE | 2017-10-16 13:51 | ASDISCHSUM ---
Discharge Information Plan Status:SNF Medically Cleared to Leave: Discharge Date:10/15/2017 02:50 PM CM D/C Disposition:[facility] ADT D/C Disposition:[facility] Projected Discharge Date:10/15/2017 11:00 AM Transportation at D/C:Medicaid Transportation Discharge Delay Reason: Follow-Up Date:10/15/2017 11:00 AM Discharge Slot: Final Diagnosis: Placement Information Referral Type:*Long Term/SNF Referral ID:[id number] Provider Name:Nemo Zuñiga [place] Address 1:[address] Address 2: City:[place] Selection Factors: State:[place] Patient Contact Information Contact Name:DARIUS Relationship:Sister Address:[address] [place] [address] Work Phone: [facility] Alternate Phone: State/Zip Code:[place] [address] Email: Financial Information Financial Class:Medicare Primary Plan Desc:MEDICARE INPATIENT Primary Plan Number:[id number] Secondary Plan Desc:[place] Secondary Plan Number:[id number] Assessment Information LACE LACE Length of stay for Answers: 2 days current admission Acuity / Level of Answers: Yes Care: Did the patient have an inpatient admission? Comorbidities - select Answers: Diabetes (uncontrolled or all that apply controlled) Other Notes: CKD; HTN # of Emergency department Answers: 1-2 visits in the last 6 months Social determinants Answers: Mental health diagnosis (anxiety, depression, pers onality disorders, etc.) Score: 11 Date Signed: 10/15/2017 11:48 AM Electronically Signed By:Shanna Rod RN [facility] Initial CM Assessment Living Arrangements What is your living Answers: With Other (Not Family) arrangement? Who do you live with? Type Of Residence What kind of residence do Answers: [facility] Facility you live in? Type of Residence Facility Name Notes: [facility] Discharge Plan Comments Coordination Status Comments Notes: Patient is a 72yo single female with a hx of paranoid schizophrenia, diabetes type 2, HTN, CKD, GERD, and PVD who presents with acute altered mental status. Patient was admitted for pneumonia, hypoxic respiratory failure, sepsis, hyperglycemia, and hyperkalemia. PT has been ordered. Patient will most likely return to [facility] at d/c. CM will follow. Date Signed: 10/14/2017 09:30 AM Electronically Signed By:Ruby Almonte LCSW Case Management Discharge Plan Note Case Management Discharge Discharge Order Complete? Answers: Yes Patient to Obtain Answers: Other Notes: [facility] Medications Transportation Arranged Answers: [facility] will Pick (Date 10/15/2017 02:00 PM & Time) Case Management Transport Answers: Yes Form Complete Faxed Final Orders Answers: Yes Agency/Facility Transfer Answers: Yes Report Printed & Faxed to Receiving Agency Family Notified Answers: Yes Discharge Comments Notes: Gary beebe/MD pt able to return to where pt lives. [place] at notified, RN to call report. Date Signed: 10/15/2017 12:38 PM Electronically Signed By:Shanna Rod RN Intervention Information Intervention Type:*IM-Signed Date of Service:10/15/2017 12:15 PM Patient Type:Inpatient Staff Member:Danica Antonio Hours: Discipline: Severity: Comment:
--- NOTE | 2017-11-17 14:08 | PQFORM ---
PHYSICIAN QUERY FORM Needs Your Response This query form is being sent to you to assure this patient record is coded properly. Please respond to the question below: [employer] OUT WORKER QUESTION: Dear Dr. Sky, in reviewing this patients medical record, it is noted patient held the diagnosis of 'Acute metabolic encephalopathy.' Patient presented to the ER with altered mental status. H&P diagnosed patient with 'Acute metabolic encephalopathy.' In Hospitalist progress notes dated 10/13-10/15 patient held the diagnosis of "acute encephalopathy." Noted in the 10/13 Medical Necessity patient met IP criteria for treatment of DKA and Encephalopathy. After study, should the diagnosis of 'Acute metabolic encephalopathy' be included in your discharge summary? ____X_ Yes No Unable to determine Other more appropriate diagnosis (please specify) Thank you CANDICE Curiel HIM/Coding Dept. [phone] INSTRUCTIONS FOR RESPONSE: Answer question by clicking on the "Edit Document" button. Move cursor to area below the stars. When complete, hit "Save." Click on the "Sign" button, then click "Sign" again. Type in your PIN and hit "Enter." MTDD
== END 2017-10-15 14:50 | DRG 637 ==
LOC: EDUNIT# → F2N 08:12 → F3E 10-14 17:33
PROVIDERS: ADMIT Family Medicine; ATTEND Family Medicine
DX: E11.00 Type 2 diabetes mellitus with hyperosmolarity without nonketotic hyperglycemic-hyperosmolar coma (NKHHC) (principal); G93.49 Other encephalopathy; F20.0 Paranoid schizophrenia; E86.0 Dehydration; E11.65 Type 2 diabetes mellitus with hyperglycemia; E11.51 Type 2 diabetes mellitus with diabetic peripheral angiopathy without gangrene; D64.9 Anemia, unspecified; I12.9 Hypertensive chronic kidney disease with stage 1 through stage 4 chronic kidney disease, or unspecified chronic kidney disease; N18.9 Chronic kidney disease, unspecified; K21.9 Gastro-esophageal reflux disease without esophagitis; Z79.84 Long term (current) use of oral hypoglycemic drugs
CPT/HCPCS: 82435-PO; 82565-PO; 82947-PO; 84132-PO; 84295-PO; 84484-PO; 84520-PO; 85014-PO; 96365; 97162-GP; 97530-GP; G8978-GP-CM; G8979-GP-CL; J1644; J1815; J3480